=== PATIENT | female | born 2000 | race Caucasian/White ===

== ENCOUNTER 2021-12-17 07:42 | Inpatient (IN) ==
[2021-12-17] MEDS ORDERED: OXYTOCIN 30 UNITS/500 ML BAG IV PRN (09:41)
[2021-12-17] MEDS ORDERED: LIDOCAINE 1% LOCAL 20 ML VIAL INFIL PRN (09:41)
[2021-12-17] MEDS ORDERED: DINOPROSTONE 10 MG INSERT PV ONE (10:08)
--- NOTE | 2021-12-17 10:20 | History & Physical Report ---
Date of Service December 17, 2021 Assessment & Plan (1) Post-dates : Plan Induction of labor with Cytotec Admission and Anticipated Discharge Date Admission Date: December 17, 2021 History of Present Illness Chief Complaint: induction of labor for post dates Primary Care Provider: Sangeeta Sanchez PA-C 21 F [id number] 41.1 weeks here for inducttion of labor for post dates . Her GBS is negative. Covid is negative. Allergies Allergy/AdvReac Type Severity Reaction Status Date / Time No Known Allergies Allergy Unverified 12/17/21 08:11 Home Medications Medication Instructions Recorded Confirmed Type 1 tab PO DAILY 12/17/21 12/17/21 History iron 1 tab PO DAILY 12/17/21 12/17/21 History Patient History Medical History (Updated 12/17/21 @ 10:19 by Manjeet Sheriff MD) Anemia On Iron infusion. Anxiety and depression Patient states she was on medication for Anxiety prior to , stop medication in and she is doing well. Social History Smoking Status: Never smoker Hx Alcohol Use: No Hx Substance Use: Yes Preferred Language: Tajik Brick Tosser Required: No Beliefs That Will Affect Care: None marital status: Current Living Situation: Spouse Current Living Situation Comment: Patient Lives with and her family. Feels Safe at Home: Yes Safety Concerns: Feels Safe At This Time OB History primip [employer] History neg Physical Exam Constitutional: WD/WN, vitals as above Eyes: PERRL, conjunctivae normal, anicteric sclerae Cardiovascular: RRR, no murmur, no edema Musculoskeletal: Extremities: extremities normal to inspection Psychiatric: A+Ox3, euthymic affect Genitourinary: OB Exam Abdomen: + fundal height and + vertex Manual OB Exam: + cervical dilation fingertip, + cervical effacement 50% and + station high OB Exam Monitor Tracing: + external FHT monitor used, + external uterine monitor used, + category I and + normal FHT variability Results & Data ([facility]) Vital Signs (Past 12 Hours) Vital Signs Temp Pulse Resp BP 12/17/21 08:15 37.4 C 96 H 16 116/66 12/17/21 08:01 96 H 116/66 Laboratory Results 12/17/21 09:20 SARS-CoV-2, RNA, NAAT NEGATIVE
[2021-12-17 10:28] LABS: Hematocrit (blood only) 34.4 % (34.1-44.9); Hemoglobin 11.3 g/dl (12.0-16.0); Mean Corpuscular Hemoglobin 27.8 pg (25.0-34.0); Mean Corpuscular Hgb Conc 32.8 g/dL (32.0-36.0); Mean Corpuscular Volume 84.7 fL (80.0-100.0); Mean Platelet Volume 9.8 fL (9.4-12.3); Platelet Count 199 K/uL (130-400); RDW Coefficient of Variation 17.6 % (11.5-14.5); RDW Standard Deviation 54.4 fL (36.4-46.3); Red Blood Count 4.06 M/uL (3.93-5.22); White Blood Count 8.03 K/ul (4.8-10.8)
--- NOTE | 2021-12-17 11:20 | Labor Progress Brief Note ---
Date of Service December 17, 2021 Assessment & Plan Admission and Anticipated Discharge Date Admission Date: December 17, 2021 Physical Exam Genitourinary: OB Exam Abdomen: + estimated weight (8-8.5 lbs.) OB Exam Monitor Tracing: + external FHT monitor used, + external uterine monitor used, + category I and + normal FHT variability Cervivdil 10 mg placed vaginally Results & Data ([facility]) Vital Signs (Past 12 Hours) Vital Signs Temp Pulse Resp BP 12/17/21 08:15 37.4 C 96 H 16 116/66 12/17/21 10:44 81 114/64 12/17/21 08:01 96 H 116/66
--- NOTE | 2021-12-17 23:20 | Labor Progress Brief Note ---
Date of Service December 17, 2021 Assessment & Plan Admission and Anticipated Discharge Date Admission Date: December 17, 2021 Physical Exam Genitourinary: Manual OB Exam: + cervical dilation 1 cm and 2 cm, + cervical effacement 50% and + station high OB Exam Monitor Tracing: + external FHT monitor used, + external uterine monitor used, + category I and + normal FHT variability Cervidil pulled out Results & Data ([facility]) Vital Signs (Past 12 Hours) Vital Signs Temp Pulse Resp BP 12/17/21 19:22 36.8 C 18 12/17/21 22:55 85 127/80 12/17/21 19:02 88 121/79 12/17/21 18:20 18 12/17/21 18:20 36.9 C 18 12/17/21 14:19 36.9 C 96 H 18 134/78
[2021-12-18] MEDS: BUTORPHANOL TARTRATE 1 MG/ML VIAL IV PRN ×2 (00:01→02:18)
[2021-12-18] MEDS: miSOPROStoL 50 MCG TAB PO SCH ×4 (03:36→16:37)
[2021-12-18] MEDS: LACTATED RINGER'S 1,000 ML IV PRN ×2 (06:46→10:46)
[2021-12-18] MEDS ORDERED: ePHEDrine sulfate 50 MG/ML AMP ONE (06:47)
[2021-12-18] MEDS ORDERED: SODIUM CHLORIDE 0.9% INJ 10 ML VIAL ONE (06:48)
[2021-12-18] MEDS ORDERED: NALOXONE HCL 1 MG in SODIUM CHLORIDE 0.9% 1000ML 1,000 ML IV PRN (06:48)
[2021-12-18] MEDS ORDERED: fentaNYL 2MCG/ML ROPIVACAINE 1.25MG/ML 100 ML BAG EPI ONE (06:48)
[2021-12-18] MEDS ORDERED: ePHEDrine sulfate 50 MG/ML AMP IV PRN (06:48)
[2021-12-18] MEDS ORDERED: LIDOCAINE 2%/EPINEPHRINE 1:200,000 20 ML SDV ONE (06:48)
[2021-12-18] MEDS ORDERED: NALBUPHINE HCL INJ 10 MG/ML AMP IV PRN (06:48)
[2021-12-18] MEDS ORDERED: fentaNYL 2MCG/ML ROPIVACAINE 1.25MG/ML 100 ML BAG EPI PRN (06:48)
[2021-12-18] MEDS ORDERED: NALOXONE HCL 0.4 MG/1 ML VIAL/CARP IV PRN (06:48)
[2021-12-18] MEDS ORDERED: BUPIVACAINE 0.25% 30 ML VIAL ONE (06:48)
[2021-12-18] MEDS ORDERED: fentaNYL citrate 100 MCG/2 ML VIAL ONE (06:48)
[2021-12-18] MEDS ORDERED: diphenhydrAMINE 50 MG/ML VIAL IV PRN (06:48)
--- NOTE | 2021-12-18 06:48 | Anesthesiology Consultation ---
Date of Service December 18, 2021 Assessment & Plan (1) Encounter for pre-operative examination: Chart Review Chart Review: Patient NOT seen in Pre Admission Testing and Acceptable Risk for Labor Epidural Consults Requested none History Height/Weight Height: 5 ft 7.5 in Weight: 109.769 kg Allergies Allergy/AdvReac Type Severity Reaction Status Date / Time No Known Allergies Allergy Unverified 12/17/21 08:11 Medications Home Medications Medication Instructions Recorded Confirmed Last Taken 1 tab PO DAILY 12/17/21 12/17/21 12/15/21 08:00 iron 1 tab PO DAILY 12/17/21 12/17/21 12/17/21 07:00 Active Medications Generic Name Dose Route Start Last Admin Trade Name Freq PRN Reason Stop Dose Admin Butorphanol Tartrate 1 mg 12/17/21 23:20 12/18/21 02:18 Butorphanol Tartrate 1 Mg/Ml Vial IV 01/16/22 23:19 1 mg Q2R PRN Administration Pain Lactated Ringer's 1,000 mls @ 125 mls/hr 12/17/21 09:41 12/18/21 06:46 Lr IV 12/19/21 09:40 999 mls/hr .Q8H PRN Administration L&D Protocol Protocol Misoprostol 50 mcg 12/18/21 00:00 12/18/21 03:36 Misoprostol 50 Mcg Tab PO 01/17/22 00:00 Not Given Q4H ABRAHAM Past Medical History Medical History Anemia On Iron infusion. Anxiety and depression Patient states she was on medication for Anxiety prior to , stop medication in and she is doing well. Social History Smoking Status: Never smoker Hx Alcohol Use: No Hx Substance Use: Yes substance use type: does not use Physical Exam Vital Signs Last Vital Signs Temp 98.1 F 12/17/21 22:55 Pulse 86 12/18/21 02:21 Resp 18 12/17/21 22:55 BP 128/72 12/18/21 02:21 Testing Laboratory Results 12/17/21 10:16 Blood Type O Positive 12/17/21 10:13 Antibody Screen NEGATIVE 12/17/21 10:13
[2021-12-18] MEDS ORDERED: OXYTOCIN 30 UNITS/500 ML BAG IV PRN ×2 (10:11→16:01)
--- NOTE | 2021-12-18 11:40 | Labor Progress Brief Note ---
Date of Service December 18, 2021 Assessment & Plan (1) Post-dates : Plan: Met pt ans spouse Reviewed PNC FHR; CAT1 Ctx 2-3 VE /-1 SROM Anticpate VD Admission and Anticipated Discharge Date Admission Date: December 17, 2021 Results & Data ([facility]) Vital Signs (Past 12 Hours) Vital Signs Temp Pulse Resp BP Pulse Ox 12/18/21 11:32 94 H 92 12/18/21 11:27 98 H 94 12/18/21 11:28 93 H 94 12/18/21 11:23 98 H 135/72 12/18/21 11:22 107 H 94 12/18/21 11:17 99 H 95 12/18/21 11:16 104 H 93 12/18/21 11:12 111 H 96 12/18/21 11:09 100 H 133/74 12/18/21 11:07 100 H 97 12/18/21 11:06 103 H 93 12/18/21 11:02 89 95 12/18/21 10:57 93 H 95 12/18/21 10:58 102 H 94 12/18/21 10:53 90 105/56 L 12/18/21 10:52 85 95 12/18/21 10:47 36.9 C 100 H 16 96 12/18/21 10:42 91 H 95 12/18/21 10:41 87 94 12/18/21 10:40 81 102/51 L 12/18/21 10:37 90 96 12/18/21 10:32 102 H 97 12/18/21 10:27 116 H 96 12/18/21 07:20 18 12/18/21 07:20 36.9 C 18 12/18/21 08:20 18 12/18/21 08:20 36.9 C 18 12/18/21 09:15 16 12/18/21 09:15 36.9 C 16 12/18/21 10:25 102 H 106/57 L 12/18/21 10:22 90 97 12/18/21 10:17 90 96 12/18/21 10:12 110 H 96 12/18/21 10:09 103 H 110/59 L 12/18/21 10:07 102 H 95 12/18/21 10:05 105 H 94 12/18/21 10:02 98 H 95 12/18/21 09:59 92 H 94 12/18/21 09:57 87 94 12/18/21 09:54 87 94/56 L 93 12/18/21 09:52 85 94 12/18/21 09:48 90 94 12/18/21 09:47 95 H 94 12/18/21 09:43 86 94 12/18/21 09:42 88 94 12/18/21 09:40 82 101/54 L 12/18/21 09:38 93 H 94 12/18/21 09:37 87 94 12/18/21 09:32 92 12/18/21 09:32 88 12/18/21 09:32 87 94 12/18/21 09:27 89 95 12/18/21 09:26 95 H 94 12/18/21 09:25 81 100/52 L 12/18/21 09:22 92 H 94 12/18/21 09:20 86 94 12/18/21 09:17 89 95 12/18/21 09:12 83 94 12/18/21 09:10 82 103/55 L 12/18/21 09:07 88 96 12/18/21 09:02 88 96 12/18/21 08:59 80 94 12/18/21 08:57 101 H 95 12/18/21 08:54 99 H 107/57 L 12/18/21 08:52 101 H 97 12/18/21 08:47 94 12/18/21 08:47 91 H 12/18/21 08:47 87 94 12/18/21 08:42 98 H 97 12/18/21 08:41 102 H 94 12/18/21 08:39 101 H 104/59 L 12/18/21 08:37 96 H 95 12/18/21 08:32 94 H 97 12/18/21 08:27 99 H 99 12/18/21 08:24 111 H 141/79 H 12/18/21 08:22 106 H 98 12/18/21 08:17 115 H 98 12/18/21 08:12 101 H 94 12/18/21 08:08 106 H 117/63 12/18/21 08:07 100 H 93 12/18/21 08:02 106 H 92 12/18/21 08:01 85 94 12/18/21 07:57 106 H 93 09/02/22 07:54 107 H 115/69 94 12/18/21 07:52 92 H 93 12/18/21 07:47 106 H 93 12/18/21 07:46 97 H 94 12/18/21 07:42 98 H 92 12/18/21 07:39 108 H 114/64 12/18/21 07:37 102 H 94 12/18/21 07:32 108 H 93 12/18/21 07:27 105 H 94 12/18/21 07:28 108 H 94 12/18/21 07:23 104 H 124/57 L 12/18/21 07:22 94 12/18/21 07:22 112 H 12/18/21 07:22 109 H 93 12/18/21 07:21 102 H 132/66 12/18/21 07:19 94 H 126/66 12/18/21 07:17 103 H 123/67 94 12/18/21 07:15 101 H 127/67 92 12/18/21 07:13 96 H 132/84 12/18/21 07:12 100 H 98 12/18/21 07:11 100 H 137/85 12/18/21 07:09 96 H 146/83 H 12/18/21 07:07 95 12/18/21 07:07 109 H 12/18/21 07:07 115 H 141/84 H 12/18/21 07:02 95 H 98 12/18/21 06:57 96 H 99 12/18/21 02:21 86 128/72
[2021-12-18] MEDS ORDERED: CALCIUM CARBONATE 500 MG CHEWABLE TAB PO ONE (13:05)
[2021-12-18] MEDS ORDERED: METHYLERGONOVINE MALEATE 0.2 MG/ML AMP ONE (15:27)
[2021-12-18] MEDS ORDERED: miSOPROStoL 200 MCG TAB ONE (15:27)
[2021-12-18] MEDS ORDERED: ACETAMINOPHEN W/CODEINE #3 1 TAB PO PRN (16:01)
[2021-12-18] MEDS ORDERED: bisacodyL 10 MG SUPP PR PRN (16:01)
[2021-12-18] MEDS ORDERED: miSOPROStoL 200 MCG TAB PR ONE (16:01)
[2021-12-18] MEDS ORDERED: HYDROCORTISONE ACETATE 25 MG SUPP PR PRN (16:01)
[2021-12-18] MEDS ORDERED: BENZOCAINE 20% AER SPR 82.5 GM CAN EXT PRN (16:01)
[2021-12-18] MEDS ORDERED: oxyCODONE/ACETAMINOPHEN 5mg/325mg TAB PO PRN (16:01)
[2021-12-18] MEDS ORDERED: METHYLERGONOVINE MALEATE 0.2 MG/ML AMP IM ONE (16:01)
[2021-12-18] MEDS ORDERED: ACETAMINOPHEN 325 MG TAB PO PRN (16:01)
--- NOTE | 2021-12-18 17:02 | Delivery Summary ---
DELIVERY NOTE: The patient delivered a live infant in left occiput anterior presentation. There was no nuchal cord. was delivered and placed on mother's abdomen. Delayed cord clamp was performed. Cord blood was obtained. Infant's weight and Apgars are in the pediatric record. Inspection of the perineum showed a midline second-degree laceration of his right ovary with right pe riurethral tear. This was repaired with 2-0 and 3-0 Vicryl. There was good hemostasis post-repair. Rectal exam post-repair showed good sphincter tone. No sutures are palpated in the rectum. Estimated blood loss was 450 mL. Baby and mother are doing well in recovery. Job ID: [id number]
[2021-12-18] MEDS: IBUPROFEN 600 MG TAB PO PRN ×2 (17:15→21:22)
[2021-12-18] MEDS: DOCUSATE SODIUM 100 MG CAP PO SCH (21:22)
--- NOTE | 2021-12-18 23:44 | Anesthesia Procedure Note ---
Date of Service December 18, 2021 Anesthesia Post Epidural Note Vital Signs Vital Signs: Temp Pulse Resp BP Pulse Ox O2 Del Method 98.6 F 106 H 18 124/73 97 12/18/21 20:00 12/18/21 20:00 12/18/21 20:00 12/18/21 20:00 12/18/21 20:00 12/18/21 20:00 Pain Intensity Abdomen: Pain Intensity: 8 Notes Mental Status: alert / awake / arousable and participated in evaluation Nausea / Vomiting: adequately controlled Pain: adequately controlled Airway Patency, RR, SpO2: stable & adequate BP & HR: stable & adequate Hydration State: stable & adequate Neuraxial Anesthesia: was administered and sensory block is resolving Anesthetic Complications: no major complications apparent and Pt Satisfied with anesthetic care Epidural: Removed without complications and With tip intact
[2021-12-19 07:11] LABS: Hematocrit (blood only) 31.2 % (34.1-44.9); Hemoglobin 10.1 g/dl (12.0-16.0); Mean Corpuscular Hemoglobin 27.4 pg (25.0-34.0); Mean Corpuscular Hgb Conc 32.4 g/dL (32.0-36.0); Mean Corpuscular Volume 84.8 fL (80.0-100.0); Mean Platelet Volume 9.3 fL (9.4-12.3); Platelet Count 158 K/uL (130-400); RDW Coefficient of Variation 17.6 % (11.5-14.5); RDW Standard Deviation 55.1 fL (36.4-46.3); Red Blood Count 3.68 M/uL (3.93-5.22); White Blood Count 9.24 K/ul (4.8-10.8)
[2021-12-19] MEDS: PRENATAL VITAMIN 1 TAB PO SCH (08:44)
[2021-12-19] MEDS: IBUPROFEN 600 MG TAB PO PRN ×4 (08:44→21:48)
[2021-12-19] MEDS: DOCUSATE SODIUM 100 MG CAP PO SCH ×2 (08:44→21:49)
[2021-12-19] MEDS ORDERED: DIPHTHERIA/TETANUS/PERTUSSIS 0.5 ML SYR/VIAL IM ONE (09:00)
--- NOTE | 2021-12-19 09:54 | Obstetrical Progress Note ---
Date of Service December 19, 2021 Subjective Ambulation: ambulating normally Voiding: no voiding problems Passing Gas:: Yes Diet Tolerance:: regular diet Feeding Type:: breast feeding Current Pain Level(1-10): 0 doing well Physical Exam Constitutional WD/WN, vitals as above Gastrointestinal (Abdomen) normal bowel sounds, soft, nontender, no hepatosplenomegaly fundus firm below U Musculoskeletal Extremities: extremities normal to inspection Skin no rashes, warm and dry Neurologic patellar DTR's 2+ bilat, sensation intact Psychiatric A+Ox3, euthymic affect Results & Data ([facility]) Vital Signs (Past 12 Hours) Vital Signs Temp Pulse Resp BP Pulse Ox O2 Del Method 12/19/21 08:40 36.9 C 101 H 18 110/73 Room Air 12/19/21 03:24 36.7 C 92 H 18 108/70 98 Room Air 12/19/21 00:00 36.8 C 93 H 18 110/71 96 Laboratory Results Laboratory Results - last 48 hr 12/17/21 12/17/21 12/19/21 10:13 10:16 06:51 WBC 8.03 9.24 RBC 4.06 3.68 L Hgb 11.3 L 10.1 L Hct 34.4 31.2 L MCV 84.7 84.8 MCH 27.8 27.4 MCHC 32.8 32.4 RDW Std Deviation 54.4 H 55.1 H RDW Coeff of Dipika 17.6 H 17.6 H Plt Count 199 158 MPV 9.8 9.3 L Blood Type O Positive Antibody Screen NEGATIVE
[2021-12-19] MEDS ORDERED: bisacodyL 5 MG TABEC PO SCH (20:00)
[2021-12-20 06:46] LABS: Hematocrit (blood only) 28.2 % (34.1-44.9)
[2021-12-20] MEDS: PRENATAL VITAMIN 1 TAB PO SCH (08:34)
[2021-12-20] MEDS: IBUPROFEN 600 MG TAB PO PRN (08:34)
[2021-12-20] MEDS: DOCUSATE SODIUM 100 MG CAP PO SCH (08:34)
--- NOTE | 2021-12-20 11:00 | Obstetrical Progress Note ---
Date of Service December 20, 2021 Subjective Ambulation: ambulating normally Voiding: no voiding problems Passing Gas:: Yes Diet Tolerance:: regular diet Lochia:: Small Feeding Type:: breast feeding Current Pain Level(1-10): 0 doing well Physical Exam Constitutional WD/WN, vitals as above Gastrointestinal (Abdomen) Inspection/Auscultation: abdomen normal to inspection abdomen soft and non-tender. fundus firm below U Musculoskeletal Extremities: extremities normal to inspection Skin no rashes, warm and dry Neurologic patellar DTR's 2+ bilat, sensation intact Psychiatric A+Ox3, euthymic affect Results & Data ([facility]) Vital Signs (Past 12 Hours) Vital Signs Temp Pulse Resp BP Pulse Ox O2 Del Method 12/20/21 10:07 36.7 C 88 16 106/71 98 12/20/21 08:05 36.7 C 88 16 106/71 98 Room Air Laboratory Results Laboratory Results - last 72 hr 12/17/21 12/19/21 12/20/21 10:13 06:51 05:50 WBC 9.24 RBC 3.68 L Hgb 10.1 L 9.0 L Hct 31.2 L 28.2 L MCV 84.8 MCH 27.4 MCHC 32.4 RDW Std Deviation 55.1 H RDW Coeff of Dipika 17.6 H Plt Count 158 MPV 9.3 L Blood Type O Positive Antibody Screen NEGATIVE
== END 2021-12-20 14:05 | disposition home or self-care (01) | DRG 807 ==
LOC: 4S1 07:42 → 4E2 12-18 18:45